=== PATIENT | male | born 1960 | race Caucasian/White ===

== ENCOUNTER 2018-03-29 12:38 | Inpatient (IN) | payer OTHER ==
[~2018-03-29] VITALS: Ht 167.6 cm; Wt 90.7 kg
--- NOTE | 2018-03-29 12:45 | NUR ---
ADMISSION NOTE PT WAS ADMITTED TODAY AT 1245 FROM [facility] ON A 5150 DTS WRITTEN 03/28/18 @1420. PER HOLD "PT WANTS TO KILL HIMSELF BY HANGING HIMSELF WITH A ROPE. PT HAS ALSO NOT BEEN TAKING HIS MEDICATION". PT WAS BROUGHT TO THE UNIT VIA GURNEY, ACCOMPANIED BY 2 SEAFOOD PROCESSOR. UPON FACE TO FACE INTERACTION, PT IS CALM, COOPERATIVE, PLEASANT, DENIES SI/HI OR ANY PLAN AT THIS TIME. PT IS A&OX3, SIGNED ALL PAPERWORK AND BELONGINGS. PT WAS COOPERATIVE WITH BODY CHECK, SKIN INTACT, THERE'S AN OLD SCARE ON PT'S CHEST DUE TO OPEN HEART SURGERY. PT IS AMBULATORY, STEADY GAIT. VS: 127/85, 56, 98.0, 16, 96%RA, 0/10 PAIN. ADMISSION ORDERS WERE OBTAINED FROM DR. FLANAGAN AND DR. SAMS. WILL CONTINUE TO MONITOR Q15 MINS FOR SAFETY AND BEHAVIOR.
[2018-03-29] MEDS ORDERED: ALPR0.5T PO (13:13)
[2018-03-29] MEDS ORDERED: PERP2TAB5 PO (13:13)
[2018-03-29] MEDS ORDERED: SERT100T PO (13:13)
[2018-03-29] MEDS ORDERED: ARIP10TA9 PO (13:13)
[2018-03-29] MEDS ORDERED: MAGNESIUM HYDROXIDE 30 ML UDC PO PRN (15:00)
[2018-03-29] MEDS ORDERED: ACETAMINOPHEN 325 MG TABLET PO PRN (15:00)
[2018-03-29] MEDS ORDERED: LORAZEPAM 0.5 MG TABLET PO PRN (15:00)
[2018-03-29] MEDS ORDERED: MAG HYDROX/AL HYDROX/SIMETH 30 ML UDC PO PRN (15:00)
[2018-03-29 16:03] VITALS: BP 121/63
[2018-03-29 20:03] VITALS: BP 107/73
[2018-03-30 07:34] LABS: CHOLESTEROL 155 mg/dL (<200); HDL CHOLESTEROL 47 mg/dL (40-60); LDL 82 mg/dL (0-99); TRIGLYCERIDES 194 mg/dL (30-150)
[2018-03-30 07:40] LABS: ALBUMIN 3.4 g/dL (3.4-5.0); BILIRUBIN,TOTAL 0.6 mg/dL (0.2-1.0); CALCIUM, SERUM 8.6 mg/dL (8.5-10.1); POTASSIUM 3.4 mmol/L (3.5-5.1); TOTAL PROTEIN, SERUM 6.6 g/dL (6.4-8.2)
[2018-03-30 08:00] VITALS: BP 124/74
[2018-03-30] MEDS ORDERED: POTASSIUM CHLORIDE 20 MEQ TAB.PRT.SR PO ONE (10:00)
--- NOTE | 2018-03-30 12:19 | NUR ---
UR NOTE: TIERNEY faxed clinical information to Serge FLORES caser up for authorization.
--- NOTE | 2018-03-30 14:40 | NUR ---
UR NOTE: SW received phone call from Serge FLORES shelter case manager stating to fax daily clinical report to him. Per Serge, SANDRA gives daily authorizations only.
--- NOTE | 2018-03-30 15:26 | NUR ---
INITIAL DISCHARGE PLAN: Patient wishes to be discharged home to [address] [facility] [address]. TIERNEY contacted pts partner Melony [phone] who stated pt is able to return home. However, Melony has concerns regarding pts drug and alcohol use and suicidal ideations. Melony stated she wishes for pt to be discharged to a rehabilitation program. TIERNEY will help form a safe and proper discharge in collaboration with .
[2018-03-30 16:28] VITALS: BP 108/54
[2018-03-30] MEDS: SERTRALINE HCL 50 MG TABLET PO SCH (17:12)
[2018-03-30 19:50] VITALS: BP 101/62
[2018-03-30] MEDS: OLANZAPINE 5 MG TABLET PO SCH (21:10)
--- NOTE | 2018-03-31 00:30 | NUR ---
GPS RN NOTES PER PT. I WAS TAKING COUMADIN PO , FLAQUITA CHAMBERLAIN NP AT NURSE STATION INFOMED HER THAT THIS PATIENT STATUS I WAS TAKING COMMUDIN PO, STEVNE CHAMBERLAIN ROLL WRAPPER ORDERD PARTIAL THROMBOPLAST , PROTHROMBIN WITH INR ,EKG AND HAVE THE AM SHIFT NURSE FOLLOW UP WITH DAY SHIFT INTEREST. WILL ENDORSE TO DAY NURSE.
--- NOTE | 2018-03-31 08:39 | NUR ---
UR NOTE: TIERNEY faxed clinical review to Serge FLORES spring encaser for authorization.
[2018-03-31 09:14] VITALS: BP 126/57
[2018-03-31 09:59] LABS: INR 1.15 (0.87-1.13)
[2018-03-31 15:58] VITALS: BP 136/72
[2018-03-31] MEDS: SERTRALINE HCL 50 MG TABLET PO SCH (16:25)
[2018-03-31] MEDS ORDERED: WARFARIN SODIUM 2 MG TABLET PO SCH (17:00)
[2018-03-31 20:00] VITALS: BP 111/58
[2018-03-31] MEDS: TEMAZEPAM 7.5 MG CAPSULE PO PRN (22:16)
[2018-03-31] MEDS: OLANZAPINE 5 MG TABLET PO SCH (22:16)
[2018-04-01 07:09] LABS: INR 1.07 (0.87-1.13)
[2018-04-01 08:00] VITALS: BP 121/69
--- NOTE | 2018-04-01 08:23 | NUR ---
UR NOTE: TIERNEY faxed clinical review to Serge FLORES skilled nursing case manager for authorization.
[2018-04-01] MEDS: ENOXAPARIN SODIUM 100 MG/ML DISP.SYRIN SQ SCH ×2 (09:02→21:57)
--- NOTE | 2018-04-01 13:32 | NUR ---
UR NOTE: TIERNEY received call from Serge [facility] supportive employment case manager stating based on clinical review pt no longer meets criteria for hospitalization. Serge mentioned to TIERNEY that he will send message to Vladislav to request a peer to peer review for additional coverage.
--- NOTE | 2018-04-01 13:36 | NUR ---
UR NOTE: TIERNEY received a call from Patricia upper caser at [facility] [phone] requesting peer to peer before 2:00pm with Dr. Murcia [phone] for additional coverage. TIERNEY informed pts attending psychiatrist.
--- NOTE | 2018-04-01 13:45 | NUR ---
UR NOTE: attending psychiatrist did peer review with Dr. Murcia [phone] for additional coverage and pt is authorized until 04/04/18.
[2018-04-01 16:00] VITALS: BP 124/77
[2018-04-01] MEDS: SERTRALINE HCL 50 MG TABLET PO SCH (16:35)
[2018-04-01] MEDS: WARFARIN SODIUM 5 MG TABLET PO SCH (16:37)
[2018-04-01 20:00] VITALS: BP 133/73
[2018-04-01] MEDS: TEMAZEPAM 7.5 MG CAPSULE PO PRN (21:58)
[2018-04-01] MEDS: OLANZAPINE 5 MG TABLET PO SCH (21:58)
[2018-04-02 07:39] LABS: CALCIUM, SERUM 8.4 mg/dL (8.5-10.1); POTASSIUM 4.1 mmol/L (3.5-5.1)
[2018-04-02 07:52] LABS: BASOPHILS % (AUTO) 0.7 % (0.0-2.0); EOSINOPHILS % (AUTO) 3.4 % (0.0-6.0); HEMATOCRIT 40 % (39-51); HEMOGLOBIN 13.3 g/dL (13.5-17.5); LYMPHOCYTES # (AUTO) 2.2 /CMM (0.8-4.8); LYMPHOCYTES % (AUTO) 38.7 % (20.0-44.0); MEAN CORPUSCULAR HEMOGLOBIN 32 PG (26.0-33.0); MEAN CORPUSCULAR HGB CONC 33 g/dl (31.0-36.0); MEAN CORPUSCULAR VOLUME 95 fL (80-96); MONOCYTES # (AUTO) 0.5 /CMM (0.1-1.30); MONOCYTES % (AUTO) 9.4 % (2.0-12.0); NEUTROPHILS # (AUTO) 2.7 /CMM (1.8-8.9); NEUTROPHILS % (AUTO) 47.8 % (43.0-81.0); PLATELET COUNT (AUTO) 175 /CMM (150-450); RDW COEFFICIENT OF VARIATION 14.5 (11.5-15.0); RED BLOOD CELL COUNT(AUTO) 4.23 MIL/uL (4.5-6.0); WHITE BLOOD COUNT (AUTO) 5.6 K/uL (4.3-11.0)
[2018-04-02 08:00] VITALS: BP 137/77
[2018-04-02] MEDS: ENOXAPARIN SODIUM 100 MG/ML DISP.SYRIN SQ SCH ×2 (09:05→22:11)
[2018-04-02 11:40] LABS: INR 1.13 (0.87-1.13)
[2018-04-02 16:00] VITALS: BP 120/68
[2018-04-02] MEDS: WARFARIN SODIUM 5 MG TABLET PO SCH (16:32)
[2018-04-02] MEDS ORDERED: SERTRALINE HCL 50 MG TABLET PO SCH (17:00)
[2018-04-02 20:00] VITALS: BP 139/78
[2018-04-02] MEDS: OLANZAPINE 5 MG TABLET PO SCH (22:12)
[2018-04-02] MEDS: TEMAZEPAM 7.5 MG CAPSULE PO PRN (22:12)
[2018-04-03 08:00] VITALS: BP 126/73
[2018-04-03] MEDS: ENOXAPARIN SODIUM 100 MG/ML DISP.SYRIN SQ SCH ×2 (09:06→20:29)
[2018-04-03 12:01] LABS: INR 1.25 (0.87-1.13)
[2018-04-03 16:00] VITALS: BP 110/66
[2018-04-03] MEDS: SERTRALINE HCL 50 MG TABLET PO SCH (16:39)
[2018-04-03] MEDS: WARFARIN SODIUM 5 MG TABLET PO SCH (16:40)
[2018-04-03 19:43] VITALS: BP 123/74
[2018-04-03] MEDS: OLANZAPINE 5 MG TABLET PO SCH (21:37)
[2018-04-03] MEDS: TEMAZEPAM 7.5 MG CAPSULE PO PRN (23:18)
[2018-04-04 08:27] VITALS: BP 127/73
[2018-04-04] MEDS: ENOXAPARIN SODIUM 100 MG/ML DISP.SYRIN SQ SCH ×2 (09:33→21:18)
[2018-04-04 15:15] LABS: INR 1.61 (0.85-1.15)
--- NOTE | 2018-04-04 15:41 | NUR ---
DISCHARGE NOTE: Pt will be discharged between 3:00-5:00pm home via private vehicle by Melony [address] [address]. Pts was mood is pleasant with congruent affect and denied visual/auditory hallucinations and denied suicidal/homicidal ideations. Patient was referred to [facility]: [address] [place] [address] and will report for an Intake on Thursday April 05, 2018 before 5:00pm. Additional resources included [facility] [address] [place] [address] and [facility] [address] [place] [address] . Pt was given a referral to [facility] [address] [facility] [address] and will schedule a follow-up appointment with [facility]: Dr. Calvin Zimmer [address] [address] [phone]. The multidisciplinary exitcare form was done, printed, signed, and given to the patient. Addendum: 04/05/18 at 0917 by GERARD MONET Patient was not discharged on 04/04/18 due to increased INR and increase in Coumadin.
[2018-04-04 16:00] VITALS: BP 138/84
[2018-04-04] MEDS: WARFARIN SODIUM 2 MG TABLET PO SCH (17:43)
[2018-04-04] MEDS: SERTRALINE HCL 50 MG TABLET PO SCH (17:44)
[2018-04-04 19:33] VITALS: BP 124/70
[2018-04-04] MEDS: TEMAZEPAM 7.5 MG CAPSULE PO PRN (21:11)
[2018-04-04] MEDS: OLANZAPINE 5 MG TABLET PO SCH (21:11)
--- NOTE | 2018-04-04 21:20 | NUR ---
TEMAZEPAM 7.5 MG CAP PO GIVEN FOR SLEEP. WILL CONTINUE TO MONITOR.
[2018-04-05 08:00] VITALS: BP 115/53
[2018-04-05 08:39] LABS: INR 1.92 (0.87-1.13)
[2018-04-05] MEDS: ENOXAPARIN SODIUM 100 MG/ML DISP.SYRIN SQ SCH (08:46)
[2018-04-05] MEDS ORDERED: CLOPIDOGREL BISULFATE 75 MG TABLET PO SCH (09:00)
--- NOTE | 2018-04-05 09:16 | NUR ---
UR NOTE: TIERNEY faxed clinical review to Serge FLORES case preparer and liner for authorization.
[2018-04-05] MEDS ORDERED: SERTRALINE HCL 50 MG TABLET PO SCH (11:30)
[2018-04-05 15:57] LABS: INR 2.17 (0.87-1.13)
[2018-04-05 16:00] VITALS: BP 135/68
[2018-04-05] MEDS: SERTRALINE HCL 50 MG TABLET PO SCH (17:01)
[2018-04-05] MEDS: WARFARIN SODIUM 2 MG TABLET PO SCH (17:05)
--- NOTE | 2018-04-05 17:50 | NUR ---
GPS RN NOTE: RECEIVED CALL FROM DR PEREZ REGARDING PT PT/INR ,REPORTED MD RESULT, ORDER TO DISCHARGE PT HOME , CONTINUE MEDICATION DC PRN. ORDER PLACED AND CARED OUT
--- NOTE | 2018-04-05 18:10 | NUR ---
GPS KNIFE MACHINE OPERATOR NOTE: PT DISCHARGE HOME [address] [facility] [address] V[address] T[address]I. PT IN STABLE CONDITION , NO S/S DISTRESS NOTED PT AMBULATORY SELF CARE ,VSS ,PT COMPLIANT WITH MEDICATIONS AND TX . DR DANIELSON AND DR PEREZ AWARE AND AGREED FOR DISCHARGE, HOME HEALTH ORDER,PT SKIN CLEAN AND INTACT. ALL BELONGINGS RETURNED TO PT.EXPLAIN PT MEDICATION MGMT CONTINUE TAKING MEDICATION PRESCRIBED, FOLLOW UP WITH MD ORDERS COMPLY WITH MEDICATIONS.EXIT CARE DONE, PRINTED SIGN AND GIVEN TO PT.PT DENIES SI/HI .
--- NOTE | 2018-04-06 08:20 | NUR ---
TIERNEY faxed home health referral to Gabriela from [facility] Address: [address], [place] [address] .
--- NOTE | 2018-04-06 08:33 | NUR ---
DISCHARGE NOTE: Pt was discharged at 6:00pm via [facility] taxi voucher home to [address] [facility] [address]. Pts Melony [phone] was notified and agreed with discharge plan. Pts was mood is pleasant with congruent affect and denied visual/auditory hallucinations and denied suicidal/homicidal ideations. Patient was referred to [facility]: [address] [place] [address] and will report for an Intake on Thursday April 05, 2018 before 5:00pm. Additional resources included [facility] [address] [place] [address] and [facility] [address] [place] [address] . Pt was given a referral to [facility] [address] [facility] [address] and will schedule a follow-up appointment with Chief Of Hospital Medicine: Dr. Calvin Zimmer [address] [facility] [address], [place] [address] [phone]. SW faxed home health referral to [facility] Address: [address] [facility] [address] [address] . The multidisciplinary exitcare form was done, printed, signed, and given to the patient.
--- NOTE | 2018-04-06 11:48 | NUR ---
UR NOTE: TIERNEY received a call from Serge case operator at [facility] [phone] who stated pt was not authorized coverage from 04/02/18-. Srege stated that a letter has already been generated and sent to the hospital. Dr. Cortés did a peer review with Dr. Murcia [phone] for additional coverage on 04/01/18 and pt was authorized until 04/04/18. Due to pts INR being elevated Sr. Liu did not authorize D/C on Wednesday04/04/18 and pt was D/C on Wednesday04/05/18.
== END 2018-04-05 18:00 | disposition home or self-care (01) | DRG 885 ==
LOC: GPS 12:38
PROVIDERS: ADMIT Psychiatry & Neurology Psychosomatic Medicine; ATTEND Internal Medicine
DX: F25.1 Schizoaffective disorder, depressive type (principal); R45.851 Suicidal ideations; F41.9 Anxiety disorder, unspecified; F32.9 Major depressive disorder, single episode, unspecified; I10 Essential (primary) hypertension; F19.10 Other psychoactive substance abuse, uncomplicated; Z95.2 Presence of prosthetic heart valve; Z79.01 Long term (current) use of anticoagulants
CPT/HCPCS: 36415; 80048-TC; 80053-TC; 80061-TC; 85025-TC; 85610-TC; 85730-TC; 87081-TC; 93307-TC; J1650